=== PATIENT | female | born 1995 | race Caucasian/White ===

== ENCOUNTER 2017-10-05 06:20 | Emergency (ER) | payer BC ==
[2017-10-05 06:28] VITALS: BP 110/70; PULSE 104; RESP 16; TEMP 97.9; O2SAT 94
[2017-10-05] MEDS ORDERED: ONDANSETRON DISINTEGRATING 4 MG TAB PO ONE (06:50)
[2017-10-05] MEDS ORDERED: IBUPROFEN 600 MG TAB PO ONE (06:50)
[2017-10-05] MEDS ORDERED: ONDANSETRON DISINTEGRATING 4 MG TAB ONE (06:51)
--- NOTE | 2017-10-05 06:58 | EDPHY ---
H & P Time Seen by Provider: 10/05/17 06:40 HPI/ROS: CHIEF COMPLAINT: Nausea HISTORY OF PRESENT ILLNESS: This 22-year-old woman just spent several days with her father in [place] who is hospitalized with influenza. Started having symptoms last night around 10:00 p.m. She presents with headache and nausea with vomiting and diffuse myalgias. Symptoms are identical to previous seasons when she got influenza, and she did not receive vaccine this year. Severe and worse nausea with attempted intake of oral fluids. Not associated with diarrhea. REVIEW OF SYSTEMS: Eye: no change in vision ENT: no sore throat or earache Cardiac: no chest pain or syncope Pulmonary: no cough or SOB Abdomen: Mild crampy abdominal pain Musculoskeletal: Diffuse myalgias but no neck stiffness Skin: no rash Neuro: HPI Constitutional: Subjective fever and chills : no urinary symptoms A comprehensive 10 point review of systems is otherwise negative aside from elements mentioned in the history of present illness. PAST MEDICAL HISTORY: Epilepsy currently on Lamictal. Attention deficit hyperactivity disorder. Social history: Recent travel to [place] as documented above General Appearance: Alert and conversant, cooperative. Eyes: No scleral icterus. ENT, Mouth: Normal mucous membranes. Normal tympanic membranes. Respiratory: Normal respiratory effort, breath sounds equal, lungs are clear to auscultation. No wheezing and speaking in full sentences. Cardiovascular: Regular rate and rhythm. Gastrointestinal: Abdomen is soft and non tender. Neurological: Alert, ambulatory, normal motor and sensory Skin: Warm and dry, no rashes. Musculoskeletal: Normal range of motion of the neck. Psychiatric: Not agitated. Emergency Department course/MDM: Zofran ODT, oral ibuprofen. Up-to-date reviewed and recommended treatment in patients with epilepsy. In this person with with beginning of typical flu symptoms and symptoms less than 48 hr and recent known exposure to influenza and not vaccinated I think it is reasonable to treat with antivirals which is what the patient wants. Tamiflu x5 days, risk benefit discussed and consented. Benign abdominal examination. 720: Patient is requesting influenza testing. We discussed that test is not 100% accurate, and she could still have the illness with a negative test. She states she understands but she is still requesting to be tested. I think most reasonable thing is to treat her with antivirals regardless of the results of the test at this point, given her symptoms and qualifying diagnosis of seizure disorder. 805: Influenza testing negative; patient informed at 830. Mom also informed, pt says OK with that. Smoking Status: Never smoked Constitutional: Initial Vital Signs Temperature (C) 36.6 C 10/05/17 06:25 Heart Rate 104 H 10/05/17 06:25 Respiratory Rate 16 10/05/17 06:25 Blood Pressure 110/70 10/05/17 06:25 O2 Sat (%) 94 10/05/17 06:25 O2 Delivery Mode Room Air Allergies/Adverse Reactions: No Known Allergies Allergy (Unverified 06/10/13 08:20) Home Medications: Medication Instructions Recorded Lisdexamfetamine Dimesylate 60 mg PO DAILY 11/26/13 [Vyvanse] LaMICtal 10/05/17 Ondansetron Odt [Zofran Odt] 4 mg PO Q4PRN #6 tab 10/05/17 Oseltamivir Phosphate [Tamiflu] 75 mg PO BID #10 cap 10/05/17 Medical Decision Making Differential Diagnosis: Differential considered including but not limited to gastroenteritis, influenza , other viral, food related nausea and vomiting - Data Points Laboratory Results: 10/05/17 07:20 Nasal Influenza A PCR NEGATIVE FOR FLU A (NEGATIVE) Nasal Influenza B PCR NEGATIVE FOR FLU B (NEGATIVE) Medications Given: Discontinued Medications Ibuprofen (Motrin) 600 mg PO EDNOW ONE Stop: 10/05/17 06:51 Last Admin: 10/05/17 07:17 Dose: 600 mg Ondansetron HCl (Zofran Odt) 4 mg PO EDNOW ONE Stop: 10/05/17 06:51 Last Admin: 10/05/17 06:53 Dose: 4 mg Departure - Departure Disposition: Home, Routine, Self-Care Clinical Impression: Nausea & vomiting Qualifiers: Vomiting type: unspecified Vomiting Intractability: non-intractable Qualified Code(s): R11.2 - Nausea with vomiting, unspecified Condition: Good Instructions: Acute Nausea and Vomiting (ED) Referrals: Anabela Navarrete MD [Primary Care Provider] - As per Instructions Prescriptions: Ondansetron Odt [Zofran Odt] 4 mg PO Q4PRN #6 tab Oseltamivir Phosphate [Tamiflu] 75 mg PO BID #10 cap
== END 2017-10-05 07:33 | disposition home or self-care (01) ==
DX: R11.2 Nausea with vomiting, unspecified (principal)